=== PATIENT | male | born 1950 | race Caucasian/White ===

== ENCOUNTER → 2017-03-04 | Outpatient (CLI) | payer BC ==
[2017-03-04 13:56] LABS: BLOOD UREA NITROGEN 20 mg/dl (7-18); BUN/CREATININE RATIO 11.8 (10-20); CALCIUM 8.6 mg/dl (8.5-10.1); CARBON DIOXIDE 24 mmol/L (21-32); CHLORIDE 111 mmol/L (98-107); GLUCOSE 85 mg/dl (70-99); SODIUM 142 mmol/L (136-145)
[2017-03-04 14:00] LABS: CHOLESTEROL 153 mg/dl (0-200); CHOLESTEROL/HDL RATIO 4.1; HDL CHOLESTEROL 37 mg/dl; TRIGLYCERIDES 187 mg/dl (0-150); VERY LOW DENSITY LIPOPROT CALC 37 mg/dl
== END | disposition home or self-care (01) ==
LOC: C.LABSPEC 10:12
PROVIDERS: ATTEND Internal Medicine
DX: Z00.00 Encounter for general adult medical examination without abnormal findings (principal); E78.5 Hyperlipidemia, unspecified

== ENCOUNTER → 2017-10-14 | Outpatient (CLI) | payer BC ==
[2017-10-14 09:57] LABS: BASO % 0.3 %; BASO ABS # 0.02 K/uL (0-0.2); EOS % 1.8 %; EOS ABS # 0.11 K/uL (0-0.5); HEMATOCRIT 43.7 % (42-52); HEMOGLOBIN 14.7 g/dL (14.0-18.0); IG# 0.02 K/uL (0.00-0.02); LYMPH % 35.1 %; MEAN CELL VOLUME 87.9 fL (80-100); MEAN CORPUSCULAR HEMOGLOBIN 29.6 pg (25-34); MEAN CORPUSCULAR HGB CONC 33.6 g/dl (32-36); MEAN PLATELET VOLUME 9.6 fL (7.4-10.4); NEUT % 54.5 %; NEUT ABS # 3.42 K/uL (1.4-6.5); PLATELET COUNT 173 K/uL (130-400); RED CELL DISTRIBUTION WIDTH CV 14.3 % (11.5-14.5); RED CELL DISTRIBUTION WIDTH SD 45.8 fL (36.4-46.3); WHITE BLOOD COUNT 6.27 K/uL (4.8-10.8)
[2017-10-14 10:23] LABS: BLOOD UREA NITROGEN 21 mg/dl (7-18); CALCIUM 8.8 mg/dl (8.5-10.1); CARBON DIOXIDE 27 mmol/L (21-32); CREATININE 1.77 mg/dl (0.60-1.40); GLUCOSE 87 mg/dl (70-99); POTASSIUM 3.8 mmol/L (3.5-5.1); SODIUM 142 mmol/L (136-145)
== END | disposition home or self-care (01) ==
LOC: C.CPL 08:49
PROVIDERS: ATTEND Surgery
DX: K42.9 Umbilical hernia without obstruction or gangrene (principal)

== ENCOUNTER → 2018-02-03 | Outpatient (CLI) | payer BC ==
[~2018-02-03] MED LIST: ACET-1693 PO; CEPH500C2 PO; HYDR-5688 PO
== END | disposition home or self-care (01) ==
LOC: C.RDSM 10:54
PROVIDERS: ATTEND Podiatrist
DX: M79.671 Pain in right foot (principal); M79.672 Pain in left foot

== ENCOUNTER 2018-06-23 08:58 | Inpatient (IN) ==
[2018-06-23] MEDS ORDERED: fentaNYL citrate 100 MCG/2 ML VIAL IV STA (09:53)
[2018-06-23] MEDS ORDERED: SODIUM CHLORIDE 0.9% 1000ML 1,000 ML IV ONE (09:53)
[2018-06-23 10:05] LABS: Basophils # (auto) 0.04 K/uL (0-0.2); Basophils % (auto) 0.3 %; Eosinophils % (auto) 2.5 %; Hematocrit (blood only) 45.1 % (42-52); Hemoglobin 15.1 g/dL (14.0-18.0); Immature Granulocytes # (auto) 0.04 K/uL (0.00-0.02); Immature Granulocytes % (auto) 0.3 %; Lymphocytes # (auto) 2.48 K/uL (1.2-3.4); Lymphocytes % (auto) 20.5 %; Mean Corpuscular Hgb Conc 33.5 g/dL (32-36); Mean Corpuscular Volume 87.6 fL (80-100); Mean Platelet Volume 9.7 fL (7.4-10.4); Monocytes # (auto) 0.61 K/uL (0.11-0.59); Neutrophils # (auto) 8.62 K/uL (1.4-6.5); Neutrophils % (auto) 71.4 %; Platelet Count 146 K/uL (130-400); RDW Coefficient of Variation 13.9 % (11.5-14.5); RDW Standard Deviation 44.5 fL (36.4-46.3); Red Blood Count 5.15 M/uL (4.7-6.1); White Blood Count 12.09 K/uL (4.8-10.8)
[2018-06-23 10:11] LABS: Alanine Aminotransferase 23 U/L (12-78); Albumin Level 3.6 gm/dl (3.4-5.0); Aspartate Aminotransferase 9 U/L (15-37); BUN Creatinine Ratio 14.5 (10-20); Blood Urea Nitrogen 33 mg/dl (7-18); Calcium 9.5 mg/dl (8.5-10.1); Carbon Dioxide 23 mmol/L (21-32); Chloride 107 mmol/L (98-107); Creatinine Clr Calc Pharmacy 42.6 ml/min; Est GFR (African American) 33.3; Est GFR (Non-African American) 28.7; Glucose 121 mg/dl (70-99); Magnesium 2.2 mg/dl (1.8-2.4); Potassium 3.4 mmol/L (3.5-5.1); Sodium 141 mmol/L (136-145)
[2018-06-23 10:17] LABS: Albumin Globulin Ratio 0.9 (0.9-2); Alkaline Phosphatase 79 U/L (45-117); Bilirubin,Total 1.7 mg/dl (0.1-1); Globulin 4.1 gm/dl (2.5-4.0); NT Pro B Type Natriuretic Pept 144 pg/ml (0-900); Total Protein 7.7 gm/dl (6.4-8.2); Troponin I < 0.015 ng/ml (0-0.045)
--- NOTE | 2018-06-23 11:51 | XRay Report ---
XR chest 2V routine HISTORY: Short of breath, left chest pain COMPARISON: None. FINDINGS: No pneumothorax. There may be a trace left pleural effusion. Left basilar airspace opacitie s are noted. Slight elevation the left hemidiaphragm. No evidence for pulmonary edema. The right lung is clear. The heart is borderline enlarged. This may be accentuated by the low lung volumes. There i s a left infrahilar/subcarinal nodule measuring 4.9 x 3.6 cm. IMPRESSION: 1. A 4.9 x 3.6 cm left infrahilar/subcarinal nodule. This could be partially calcified given the dens ity. However, recommend dedicated chest CT with contrast for further evaluation. 2. Suspect a trace left pleural effusion with left basilar airspace opacities. This could be due to a telectasis or pneumonia. Electronically signed by: Hollis Christianson M.D. 06/23/2018 11:50 AM
[2018-06-23] MEDS ORDERED: AZITHROMYCIN 250 MG TAB PO ONE (11:54)
[2018-06-23] MEDS ORDERED: cefTRIAXone SODIUM 1,000 MG/50 ML BAG IV STA (11:54)
[2018-06-23] MEDS ORDERED: SODIUM CHLORIDE 0.9% 1000ML 1,000 ML IV SCH (12:15)
[2018-06-23] MEDS ORDERED: IOVERSOL 100ml IV PRN (12:54)
--- NOTE | 2018-06-23 13:00 | CT Scan Report ---
CT ANGIOGRAM OF THE CHEST CLINICAL HISTORY: Atypical chest pain, shortness of breath, abnormal chest x-ray with adenopathy. COMPARISON STUDY: Chest x-ray dated 06/23/2018 TECHNIQUE: Following the IV administration of 94 mL of Optiray-320, CT angiogram of the thorax was pe rformed from the thoracic inlet to the lung bases utilizing the pulmonary embolus protocol. Images ar e reviewed in the axial, sagittal, and coronal planes. IV contrast was administered without complicat ion. MIP imaging was performed. A dose lowering technique was utilized adhering to the principles of ALARA. CT DOSE: 765.23 mGy.cm FINDINGS: There are densely calcified mediastinal lymph nodes consistent with an old granulomatous etiology. There is mild dilatation of the ascending thoracic aorta which measures 41 mm. There are extensive bilateral pulmonary artery filling defects, indicative of acute bilateral pulmona ry embolism. There is equivocal minor right ventricular strain. There is a small left pleural effusion There is respiratory motion artifact. There are dependent atelectatic changes. There are calcified le ft lower lobe granulomas. Pleural-based opacities are likely atelectatic or small infarcts. IMPRESSION: 1. Acute bilateral pulmonary embolism. Electronically signed by: Osmani Lynch M.D. 06/23/2018 12:59 PM
[2018-06-23 13:26] LABS: INR 1.1 (0.9-1.1); Partial Thromboplastin Ratio 1.1; Partial Thromboplastin Time 29.7 Seconds (21.0-31.0); Prothrombin Time 11.3 Seconds (9.0-12.0)
--- NOTE | 2018-06-23 14:29 | Ultrasound Report ---
BILATERAL LOWER EXTREMITY VENOUS DOPPLER HISTORY: Acute shortness of breath with pulmonary emboli new Pe dx COMPARISON STUDY: CTA chest of same day FINDINGS: RIGHT: Common femoral, profunda femoris and superficial femoral veins appear normal and patent. Occlusive th rombus within the popliteal vein. Posterior tibial, anterior tibial and peroneal veins appear patent. Limited visualization of the calf vessels secondary to patient body habitus. LEFT: There is normal compressibility, flow, and augmentation within the left lower extremity deep venous s tructures. Limited visualization of the calf vessels secondary to patient body habitus. IMPRESSION: 1. Occlusive deep venous thrombosis of the right popliteal vein. 2. No sonographic evidence of left-sided deep venous thrombosis. Electronically signed by: Quinton Herrera M.D. 06/23/2018 2:28 PM
[2018-06-23] MEDS ORDERED: HEPARIN 25000 UNIT/500 ML D5W IV ONE (14:51)
[2018-06-23] MEDS ORDERED: HEPARIN SQ 5000 UNIT HEART ALERT CARP ONE (14:53)
[2018-06-23] MEDS: HEPARIN STANDARD DEXTROSE 25,000 UNITS/500 ML IV SCH (15:00)
--- NOTE | 2018-06-23 15:26 | History & Physical Report ---
Date of Service June 23, 2018 Assessment & Plan (1) Bilateral pulmonary embolism: This patient is a 67-year-old male with a history of HTN, idiopathic peripheral neuropathy, osteoarthritis of the ankle, chronic neck pain, and CKD stage III, who presents with worsening shortness of breath times 2 weeks along with the onset of left-sided chest pain in the lateral ribs for 2 days, along with chills but no documented fevers. He was found to have a left-sided pleural effusion and suspected pneumonia on chest x-ray. He was then sent for a CT angiogram of the chest which revealed extensive bilateral acute pulmonary emboli, along with left-sided pleural effusion and probable left lower lobe pulmonary infarct. Lower extremity venous Dopplers were positive for right popliteal DVT. He had a leukocytosis on admission but was afebrile. He was tachycardic in a sinus rhythm. He denies any recent travel or long car trips, he had an umbilical hernia repair 6 months ago, and he retired 6 months ago but has not been sedentary. He is up-to-date on colonoscopy in the last couple of months that was normal. He denies weight loss or feeling poorly otherwise prior to the last 2 weeks. He is hemodynamically stable and actually has elevated blood pressures. He is not hypoxic. Suspect possible DVT formation after his umbilical hernia repair in November, plus he then retired in December of this year and has been more sedentary than usual. He does not appear to have an underlying malignancy, however pulmonary notes that some of the appearance on his CT scan could be suspicious for mesothelioma , but could also be consistent with changes from pulmonary infarct. -Admit to telemetry unit -Start heparin drip for anticoagulation-discussed Coumadin versus NOAC with him for long-term anticoagulation and will need to rossi out the cost of the NOACs as part of his decision -Trend troponin given ST depression in lateral leads on ECG -Check echocardiogram for right-sided heart strain -We will need repeat CT of the chest in 6 months to ensure changes mentioned above are not chronic or worsening -Supplemental O2 as needed to keep pulse ox greater than 92% -Morphine 2 mg IV every 30 minutes as needed for left-sided chest pain which is pleuritic in nature -Appreciate pulmonology consultation (2) Left sided chest pain: Likely related to pleurisy from pleural effusion and pulmonary infarct. Does have some mild ST depression in lateral leads and ECG. Initial troponin is negative given that the pain is been going on constantly for 2 days, makes GA not likely at all. -Will trend troponin I more time -Check ECG in the morning IV morphine as needed for pain (3) Pneumonia: Possibly in the left lower lobe due to pulmonary infarct. With leukocytosis here and chills at home times 2 days with parapneumonic effusion. -Start Rocephin and azithromycin -Follow clinically -Blood cultures drawn (4) HTN (hypertension), benign: With significantly elevated blood pressures could be secondary to pain or anxiety -Continue metoprolol 25 mg p.o. twice daily -Holding triamterene/HCTZ given acute kidney injury -Treat pain with morphine (5) CKD (chronic kidney disease) stage 3, GFR 30-59 ml/min: Baseline creatinine around 1.7-1.8. Likely secondary to hypertensive nephropathy With creatinine elevated here above baseline as per below -Avoid nephrotoxins -Recommended he permanently discontinue meloxicam (6) Chronic neck pain: Tylenol or morphine as needed for pain-this is chronic (7) Shortness of breath: Secondary to pulmonary emboli and pleurisy -Pain control -Treating PE as above (8) Abnormal ECG: As per section on chest pain above -Repeat ECG in the morning (9) Acute DVT (deep venous thrombosis): Right popliteal DVT -Treating with anticoagulation as above (10) Osteoarthritis of ankle: Chronic, recommend stopping all NSAID use due to CKD-discussed with patient (11) Peripheral neuropathy, idiopathic: Chronic and stable -Continue gabapentin 100 mg p.o. nightly (12) JOSEPH (acute kidney injury): Creatinine elevated to 2.3 on admission from baseline of 1.7-1.8, with elevated BUN. Likely prerenal in nature due to decreased p.o. intake over the last 2 days with his illness -Continue IV fluid hydration with normal saline at 75 mL's per hour -Follow BMP in the morning (13) DVT prophylaxis: On heparin drip for acute DVT/PE as above Disposition-admit to telemetry unit, expect at least a 2 midnight stay to control symptoms, evaluate for right-sided heart strain, and establish anticoagulation History of Present Illness Chief Complaint: Chest pain, shortness of breath Primary Care Provider: Michel Treviño MD This patient is a 67-year-old male with a history of HTN, idiopathic peripheral neuropathy, osteoarthritis of the ankle, chronic neck pain, and CKD stage III, who presents to the ER with worsening shortness of breath times 2 weeks along with the onset of left-sided chest pain in the lateral ribs for 2 days. He reports chills at home but no documented fevers as they do not have a thermometer at home. He has had a dry cough. The pain was worsening and when he called his PCPs office, they recommended that he come to the ER for evaluation. He has not had much to eat or drink in the last 2 days because he was feeling poorly. He was found to have a left-sided pleural effusion and suspected pneumonia on chest x-ray. He was then sent for a CT angiogram of the chest which revealed extensive bilateral acute pulmonary emboli, along with left-sided pleural effusion and probable left lower lobe pulmonary infarct. Lower extremity venous Dopplers were positive for right popliteal DVT. He had a leukocytosis on admission but was afebrile. He was tachycardic in a sinus rhythm. He denies any recent travel or long car trips, he had an umbilical hernia repair 6 months ago, and he retired 6 months ago but has not been sedentary. He is up-to-date on colonoscopy in the last couple of months that was normal. He denies weight loss or feeling poorly otherwise prior to the last 2 weeks. He was hemodynamically stable and actually had elevated blood pressures. He was not hypoxic in the ER. He will be admitted for acute extensive bilateral pulmonary emboli. Allergies Allergy/AdvReac Type Severity Reaction Status Date / Time adhesive Allergy Unknown blisters Verified 06/23/18 10:20 No Known Drug Allergies Allergy Unknown nkda Verified 06/23/18 10:20 Home Medications Home Medications Medication Instructions Recorded Confirmed Type gabapentin 100 mg PO HS 06/23/18 06/23/18 History meloxicam 15 mg PO DAILY 06/23/18 06/23/18 History metoprolol tartrate 25 mg PO BID 06/23/18 06/23/18 History triamterene-hydrochlorothiazid 1 tab PO DAILY 06/23/18 06/23/18 History Past Med/Surg History Medical History Chronic neck pain Osteoarthritis of ankle Peripheral neuropathy, idiopathic CKD (chronic kidney disease) stage 3, GFR 30-59 ml/min HTN (hypertension), benign Surgical History History of umbilical hernia repair History of hernia surgery (Chronic) Family History Daughter DVT (deep venous thrombosis) Gynecologic malignancy Other No significant family history Social History Current Living Situation: Spouse Feels Safe at Home: Yes Safety Concerns: Feels Safe At This Time Smoking Status: Never smoker Hx Alcohol Use: Yes Alcohol type: beer Alcohol Intake Frequency: holidays/ special occasions only Hx Substance Use: No Beliefs That Will Affect Care: None Preferred Language: Persian Communication Ability: Effective Review of Systems All systems reviewed & are unremarkable except as noted in HPI & below Physical Exam 2 Vital Signs (Past 24 Hours): Last Vital Signs Temp 36.7 C 06/23/18 09:08 Pulse 89 06/23/18 13:54 Resp 18 06/23/18 13:54 BP 169/101 H 06/23/18 13:54 Pulse Ox 98 06/23/18 13:54 Constitutional: WD/WN, vitals as above Eyes: PERRL, conjunctivae normal, anicteric sclerae ENMT: external ear and nose normal, oropharynx normal Ears: no external ear abnormality, no EAC abnormality and no TM abnormality Nose: no external nose abnormality, no turbinate abnormality, no nasal mucous membrane abnormality , no nasal discharge and no sinus tenderness Mouth: no lip abnormality, no oropharynx abnormality and no oral mucosal abnormality Throat: uvula midline ; no posterior oropharynx abnormality Neck: trachea midline, no thyromegaly no tracheal deviation Thyroid: normal thyroid; no thyroid mass Respiratory: normal respiratory effort; no labored breathing Auscultation: + diminished lung sounds (At the left base); no crackles and no wheezes Cardiovascular: Rate/Rhythm: regular rhythm and + tachycardic Heart Sounds : normal S1 and normal S2; no murmur Vessels: dorsalis pedis pulses present and radial pulses present; no renal bruit Extremities: normal capillary refill; no calf tenderness, no edema and no varicosities Gastrointestinal (Abdomen): normal bowel sounds, soft, nontender, no hepatosplenomegaly Musculoskeletal: Extremities: extremities normal to inspection; no cyanosis and no clubbing Skin: no rashes, warm and dry Neurologic: moves all extremities and awake; no focal motor deficits Psychiatric: A+Ox3, euthymic affect Results & Data Laboratory Results 06/23/18 06/23/18 06/23/18 Range/Units 13:39 11:15 09:30 WBC (4.8-10.8) K/uL RBC (4.7-6.1) M/uL Hgb (14.0-18.0) g/dL Hct (42-52) % MCV (80-100) fL MCH (25-34) pg MCHC (32-36) g/dL RDW Std Deviation (36.4-46.3) fL RDW Coeff of Kang (11.5-14.5) % Plt Count (130-400) K/uL MPV (7.4-10.4) fL Immature Gran % (Auto) % Neut % (Auto) % Lymph % (Auto) % Gordon % (Auto) % Eos % (Auto) % Baso % (Auto) % Immature Gran # (Auto) (0.00-0.02) K/uL Neut # (Auto) (1.4-6.5) K/uL Lymph # (Auto) (1.2-3.4) K/uL Gordon # (Auto) (0.11-0.59) K/uL Eos # (Auto) (0-0.5) K/uL Baso # (Auto) (0-0.2) K/uL PT (9.0-12.0) Seconds INR (0.9-1.1) APTT (21.0-31.0) Seconds PTT Ratio Hexagonal Phase Confirm Pending Protein C Activity Pending Protein S Activity Pending Antithrombin III Activ Pending Factor V Leiden Mutat Pending Factor V Leiden Interp Pending Fact V Leiden Review By Pending Sodium (136-145) mmol/L Potassium (3.5-5.1) mmol/L Chloride (98-107) mmol/L Carbon Dioxide (21-32) mmol/L Anion Gap (3-11) BUN (7-18) mg/dl Creatinine (0.6-1.4) mg/dl Est Cr Clr Drug Dosing ml/min Est GFR ( Amer) Est GFR (Non-Af Amer) BUN/Creatinine Ratio (10-20) Glucose (70-99) mg/dl Calcium (8.5-10.1) mg/dl Magnesium (1.8-2.4) mg/dl Total Bilirubin (0.1-1) mg/dl AST (15-37) U/L ALT (12-78) U/L Alkaline Phosphatase (45-117) U/L Troponin I (0-0.045) ng/ml NT-Pro-B Natriuret Pep (0-900) pg/ml Total Protein (6.4-8.2) gm/dl Albumin (3.4-5.0) gm/dl Globulin (2.5-4.0) gm/dl Albumin/Globulin Ratio (0.9-2) Lipase (73-393) U/L Homocysteine Pending Beta-2-GPI IgG Ab Pending Beta-2-GPI IgA Ab Pending Beta-2-GPI IgM Ab Pending Anti-Cardiolipin IgG Ab Pending Anti-Cardiolipin IgA Ab Pending Anti-Cardiolipin IgM Ab Pending Influenza Type A Ag Neg for Influ A (Neg) Influenza Type B Ag Neg for Influ B (Neg) Prothrombin Gene Mutate Pending Prothromb Gene Comment Pending Prothromb Reviewed By Pending 06/23/18 06/23/18 06/23/18 Range/Units 09:30 09:30 09:30 WBC 12.09 H (4.8-10.8) K/uL RBC 5.15 (4.7-6.1) M/uL Hgb 15.1 (14.0-18.0) g/dL Hct 45.1 (42-52) % MCV 87.6 (80-100) fL MCH 29.3 (25-34) pg MCHC 33.5 (32-36) g/dL RDW Std Deviation 44.5 (36.4-46.3) fL RDW Coeff of Kang 13.9 (11.5-14.5) % Plt Count 146 (130-400) K/uL MPV 9.7 (7.4-10.4) fL Immature Gran % (Auto) 0.3 % Neut % (Auto) 71.4 % Lymph % (Auto) 20.5 % Gordon % (Auto) 5.0 % Eos % (Auto) 2.5 % Baso % (Auto) 0.3 % Immature Gran # (Auto) 0.04 H (0.00-0.02) K/uL Neut # (Auto) 8.62 H (1.4-6.5) K/uL Lymph # (Auto) 2.48 (1.2-3.4) K/uL Gordon # (Auto) 0.61 H (0.11-0.59) K/uL Eos # (Auto) 0.30 (0-0.5) K/uL Baso # (Auto) 0.04 (0-0.2) K/uL PT 11.3 (9.0-12.0) Seconds INR 1.1 (0.9-1.1) APTT 29.7 (21.0-31.0) Seconds PTT Ratio 1.1 Hexagonal Phase Confirm Protein C Activity Protein S Activity Antithrombin III Activ Factor V Leiden Mutat Factor V Leiden Interp Fact V Leiden Review By Sodium 141 (136-145) mmol/L Potassium 3.4 L (3.5-5.1) mmol/L Chloride 107 (98-107) mmol/L Carbon Dioxide 23 (21-32) mmol/L Anion Gap 10.0 (3-11) BUN 33 H (7-18) mg/dl Creatinine 2.30 H (0.6-1.4) mg/dl Est Cr Clr Drug Dosing 42.6 ml/min Est GFR ( Amer) 33.3 Est GFR (Non-Af Amer) 28.7 BUN/Creatinine Ratio 14.5 (10-20) Glucose 121 H (70-99) mg/dl Calcium 9.5 (8.5-10.1) mg/dl Magnesium 2.2 (1.8-2.4) mg/dl Total Bilirubin 1.7 H (0.1-1) mg/dl AST 9 L (15-37) U/L ALT 23 (12-78) U/L Alkaline Phosphatase 79 (45-117) U/L Troponin I < 0.015 (0-0.045) ng/ml NT-Pro-B Natriuret Pep 144 (0-900) pg/ml Total Protein 7.7 (6.4-8.2) gm/dl Albumin 3.6 (3.4-5.0) gm/dl Globulin 4.1 H (2.5-4.0) gm/dl Albumin/Globulin Ratio 0.9 (0.9-2) Lipase 126 (73-393) U/L Homocysteine Beta-2-GPI IgG Ab Beta-2-GPI IgA Ab Beta-2-GPI IgM Ab Anti-Cardiolipin IgG Ab Anti-Cardiolipin IgA Ab Anti-Cardiolipin IgM Ab Influenza Type A Ag (Neg) Influenza Type B Ag (Neg) Prothrombin Gene Mutate Prothromb Gene Comment Prothromb Reviewed By Diagnostic Findings CT angiogram chest personally reviewed by me and agree with the following report : FINDINGS: There are densely calcified mediastinal lymph nodes consistent with an old granulomatous etiology. There is mild dilatation of the ascending thoracic aorta which measures 41 mm. There are extensive bilateral pulmonary artery filling defects, indicative of acute bilateral pulmonary embolism. There is equivocal minor right ventricular strain. There is a small left pleural effusion There is respiratory motion artifact. There are dependent atelectatic changes. There are calcified left lower lobe granulomas. Pleural-based opacities are likely atelectatic or small infarcts. IMPRESSION: 1. Acute bilateral pulmonary embolism. Chest x-ray personally reviewed by me and agree with the following report: XR chest 2V routine HISTORY: Short of breath, left chest pain COMPARISON: None. FINDINGS: No pneumothorax. There may be a trace left pleural effusion. Left basilar airspace opacities are noted. Slight elevation the left hemidiaphragm. No evidence for pulmonary edema. The right lung is clear. The heart is borderline enlarged. This may be accentuated by the low lung volumes. There is a left infrahilar/subcarinal nodule measuring 4.9 x 3.6 cm. IMPRESSION: 1. A 4.9 x 3.6 cm left infrahilar/subcarinal nodule. This could be partially calcified given the density. However, recommend dedicated chest CT with contrast for further evaluation. 2. Suspect a trace left pleural effusion with left basilar airspace opacities. This could be due to atelectasis or pneumonia. Venous Doppler bilateral lower extremities: Right popliteal DVT present ECG Indication: chest pain Rate (beats per minute): 105 Rhythm: sinus tachycardia Findings: + ST depression (In the lateral leads, with voltage criteria for LVH present) Code Status & VTE Plan Code Status Full code VTE Prophylaxis Plan VTE Prophylaxis will be ordered: Yes _ (1) Acute DVT (deep venous thrombosis) DVT location: lower extremity Affected thrombotic vein of extremity: popliteal Laterality: right Qualified Code(s): I82.431 - Acute embolism and thrombosis of right popliteal vein (2) Pneumonia Pneumonia type: due to unspecified organism Laterality: left Lung location: lower lobe of lung Qualified Code(s): J18.1 - Lobar pneumonia, unspecified organism
[2018-06-23] MEDS ORDERED: ALUMINUM/MAGNESIUM SUSP 30 ML UDC PO PRN (16:48)
[2018-06-23] MEDS ORDERED: ONDANSETRON INJ 2 MG/ML 2 ML VIAL IV PRN (16:48)
[2018-06-23] MEDS ORDERED: POLYETHYLENE (MIRALAX) 17 GM PACK PO PRN (16:48)
[2018-06-23] MEDS ORDERED: MAGNESIUM HYDROXIDE SUSP 30 ML UDC PO PRN (16:48)
[2018-06-23] MEDS ORDERED: ACETAMINOPHEN 325 MG TAB PO PRN (16:48)
[2018-06-23] MEDS: SODIUM CHLORIDE 0.9% 1000ML 1,000 ML IV SCH (17:44)
[2018-06-23] MEDS: MoRPHine SULFATE 2 MG/ML CARP IV PRN (17:44)
--- NOTE | 2018-06-23 18:27 | Pulmonary Consultation ---
Date of Consultation June 23, 2018 Assessment & Plan (1) Bilateral pulmonary embolism: Impression: 1. Venous thromboembolic event, with PE bilaterally right greater than left. DVT with right popliteal vein thrombosis. The event likely related to recent surgical intervention and immobility for 4-6 weeks postop, per family. 2. No evidence of RV strain by CAT scan criteria, troponin is negative. 3. Pulmonary infarct involving the medial segment of the left lower lobe. Multiple areas of sub-pleuritic changes could be related to subsegmental infarct as well. 4. Small pleural effusion left-sided, inflammatory in nature. Plan: 1. Agree with heparin drip. 2. Based on the patient insurability, Coumadin versus NOAC can be started. 3. The patient will need a repeat CAT scan in 6-month to evaluate for the sub- pleuritic changes noted which should subside as they reflects pulmonary infarct most likely. 4. Pleuritic chest pain secondary to pulmonary infarct. The pain is migratory due to the pleural effusion changing position with body position as well. 5. The patient has hypercoagulable state workup done, still pending. 6. The patient denies any asbestos exposure during his career. 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 7. Discussed in details with the family and with the patient himself. All their questions been answered. 8. Obtain echocardiogram. Thank you, will follow. History of Present Illness Reason for Consultation: Pulmonary embolism Requesting Physician: Dr. Grossman Attending Physician: Zonia Grossman MD History of Present Illness Dear Dr. Grossman: Thank you for the kind referral of Mr. Bland to pulmonary service. Mr. Bland is a 67-year-old gentleman with a history of umbilical hernia status post surgical repair 4 months ago, presented to the hospital with increased shortness of breath for the past 2 weeks, chills and pleuritic chest pain on the left radiating to his left shoulder in the past 2 days, he did have occasional cough but dry without any sputum production, no hemoptysis reported no syncopal episodes and no chest pain substernally. Denies any epigastric pain no nausea or vomiting and no diarrhea no heartburn no abdominal pain and no change in bowel movements or urine habits. The patient in the ED underwent a workup which revealed no ST-T changes on the EKG, troponin was negative. CT Angio of the chest revealed bilateral PE with left lower lobe infiltrate. I was asked to evaluate the patient in regard of his current PE as well as persistent pleuritic chest pain. Ultrasound of the lower extremities revealed right popliteal DVT. The patient has a daughter who had a history of PE after she has been diagnosed with [employer] malignancy, she was taken hormonal therapy that resulted in her thromboembolic event. No other first degree relative with a history of PE. The patient himself did not have any history of thrombo-embolic events in the past. Review of system as above, no weight loss was reported and no weight gain. He is morbidly obese to begin with. 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 He denies any exposure to asbestos. Allergies Allergy/AdvReac Type Severity Reaction Status Date / Time adhesive Allergy Unknown blisters Verified 06/23/18 10:20 No Known Drug Allergies Allergy Unknown nkda Verified 06/23/18 10:20 Home Medications Home Medications Medication Instructions Recorded Confirmed Type gabapentin 100 mg PO HS 06/23/18 06/23/18 History meloxicam 15 mg PO DAILY 06/23/18 06/23/18 History metoprolol tartrate 25 mg PO BID 06/23/18 06/23/18 History triamterene-hydrochlorothiazid 1 tab PO DAILY 06/23/18 06/23/18 History Patient History Surgical History History of hernia surgery (Chronic) Family History Other No significant family history Social History Current Living Situation: Spouse Feels Safe at Home: Yes Safety Concerns: Feels Safe At This Time Smoking Status: Never smoker Hx Alcohol Use: Yes Alcohol type: beer Alcohol Intake Frequency: holidays/ special occasions only Hx Substance Use: No Beliefs That Will Affect Care: None Preferred Language: Polish Communication Ability: Effective Review of Systems 14 systems has been reviewed, they were all within normal range compared to previous. Physical Exam 2 Vital Signs (Past 24 Hours): Last Vital Signs Temp 36.7 C 06/23/18 17:35 Pulse 102 H 06/23/18 17:35 Resp 24 06/23/18 17:35 BP 186/99 H 06/23/18 17:35 Pulse Ox 97 12/26/18 17:35 Physical Exam: Vital signs are stable, S1-S2 regular rate and rhythm, blood pressure is slightly elevated, no JVP, lungs are clear, abdomen is benign, good pulses in the periphery, little edema in the periphery. Results & Data Laboratory Results Troponin is negative. The rest of his labs are acceptable. Diagnostic Findings CAT scan of the chest was reviewed personally which showed right greater than left PE, RV to LV ratio is less than 2.9, slight dilation in the root of the aorta. Multiple areas are sub-pleuritic presumably reflecting pulmonary infarct with small pleural effusion on the left.
[2018-06-23] MEDS ORDERED: PNEUMOCOCCAL POLYSACCHARIDES 25 MCG/0.5 ML VIAL/SYR IM ONE (18:45)
[2018-06-23] MEDS ORDERED: PNEUMOCOCCAL ADMINISTRATION CHARGE ONE (18:45)
[2018-06-23] MEDS: METOPROLOL TARTRATE 25 MG TAB PO SCH (20:41)
[2018-06-23] MEDS: GABAPENTIN 100 MG CAP PO SCH (20:41)
[2018-06-23] MEDS ORDERED: POTASSIUM CHLORIDE 20 MEQ TABCR PO STA (20:53)
[2018-06-23 21:57] LABS: Partial Thromboplastin Time 51.6 Seconds (21.0-31.0)
[2018-06-24] MEDS: SODIUM CHLORIDE 0.9% 1000ML 1,000 ML IV SCH (05:47)
[2018-06-24] MEDS: HEPARIN STANDARD DEXTROSE 25,000 UNITS/500 ML IV SCH (05:47)
[2018-06-24 07:26] LABS: Basophils # (auto) 0.03 K/uL (0-0.2); Basophils % (auto) 0.3 %; Eosinophils # (auto) 0.37 K/uL (0-0.5); Eosinophils % (auto) 3.1 %; Hematocrit (blood only) 42.4 % (42-52); Immature Granulocytes # (auto) 0.04 K/uL (0.00-0.02); Immature Granulocytes % (auto) 0.3 %; Lymphocytes # (auto) 2.19 K/uL (1.2-3.4); Lymphocytes % (auto) 18.4 %; Mean Corpuscular Volume 88.1 fL (80-100); Mean Platelet Volume 9.6 fL (7.4-10.4); Monocytes # (auto) 0.72 K/uL (0.11-0.59); Neutrophils # (auto) 8.57 K/uL (1.4-6.5); Neutrophils % (auto) 71.9 %; Platelet Count 140 K/uL (130-400); RDW Standard Deviation 45.9 fL (36.4-46.3); Red Blood Count 4.81 M/uL (4.7-6.1); White Blood Count 11.92 K/uL (4.8-10.8)
[2018-06-24 07:49] LABS: Partial Thromboplastin Time 51.3 Seconds (21.0-31.0)
[2018-06-24 07:54] LABS: BUN Creatinine Ratio 12.9 (10-20); Calcium 8.6 mg/dl (8.5-10.1); Est GFR (African American) 42.5; Est GFR (Non-African American) 36.7; Potassium 3.6 mmol/L (3.5-5.1)
[2018-06-24] MEDS: METOPROLOL TARTRATE 25 MG TAB PO SCH ×2 (09:20→20:19)
[2018-06-24] MEDS: MoRPHine SULFATE 2 MG/ML CARP IV PRN (13:31)
[2018-06-24] MEDS: cefTRIAXone SODIUM 1,000 MG/50 ML BAG IV SCH (13:32)
[2018-06-24] MEDS: AZITHROMYCIN 250 MG in DEXTROSE 5% 250 ML IV SCH (14:36)
--- NOTE | 2018-06-24 14:48 | Pulmonology Progress Note ---
Date of Service June 24, 2018 Assessment & Plan (1) Bilateral pulmonary embolism: Impression: 1. Venous thromboembolic event, with PE bilaterally right greater than left. DVT with right popliteal vein thrombosis. Risk factor is immobility postop. 2. No evidence of RV strain by CAT scan criteria, troponin is negative. Awaiting echo. 3. Pulmonary infarct involving the medial segment of the left lower lobe. Multiple areas of sub-pleuritic changes could be related to subsegmental infarct as well. 4. Small pleural effusion left-sided, inflammatory in nature. Plan: 1. Continue therapeutic heparin drip. 2. Coumadin versus NOAC can be started. Pending insurance approval. 3. Repeat chest CT in 6 months after completion of treatment. 4. Pleuritic chest pain secondary to pulmonary infarct. The pain is migratory due to the pleural effusion changing position with body position as well. 5. The patient has hypercoagulable state workup done, still pending. 6. Ambulate the patient. 7. Discussed in details with the family and with the patient himself. All their questions been answered. 8. Echocardiogram is pending. 9. If the patient elected to go on Coumadin, overlap Coumadin with heparin with both therapeutic for at least 24 hours, this does not apply for NOAC where the patient can be started on the loading dose of the anticoagulant and heparin can be stopped immediately, the patient can be discharged. Thank you, will follow as needed. Subjective The patient is feeling better, chest pain is better, no shortness of breath, ambulatory to the bathroom. Is still using 2 L of oxygen via nasal cannula, no new symptoms. Denies any melena or hematochezia. Physical Exam 2 Vital Signs (Past 24 Hours): Last Vital Signs Temp 36.7 C 06/24/18 12:12 Pulse 77 06/24/18 12:12 Resp 18 06/24/18 12:12 BP 146/78 H 06/24/18 12:12 Pulse Ox 93 06/24/18 12:12 Physical Exam: Vital signs remained stable, S1-S2 regular rate and rhythm, lungs are clear, abdomen is benign, no edema. Results & Data Laboratory Results PTT reviewed, platelets and hematocrit also were reviewed. Diagnostic Findings No new imaging.
--- NOTE | 2018-06-24 19:56 | Hospitalist Progress Note ---
Date of Service June 24, 2018 Assessment & Plan (1) Bilateral pulmonary embolism: This patient is a 67-year-old male with a history of HTN, idiopathic peripheral neuropathy, osteoarthritis of the ankle, chronic neck pain, and CKD stage III, who presents with worsening shortness of breath times 2 weeks along with the onset of left-sided chest pain in the lateral ribs for 2 days, along with chills but no documented fevers. He was found to have a left-sided pleural effusion and suspected pneumonia on chest x-ray. He was then sent for a CT angiogram of the chest which revealed extensive bilateral acute pulmonary emboli, along with left-sided pleural effusion and probable left lower lobe pulmonary infarct. Lower extremity venous Dopplers were positive for right popliteal DVT. He had a leukocytosis on admission but was afebrile. He was tachycardic in a sinus rhythm. He denies any recent travel or long car trips, he had an umbilical hernia repair 6 months ago, and he retired 6 months ago but has not been sedentary. He is up-to-date on colonoscopy in the last couple of months that was normal. He denies weight loss or feeling poorly otherwise prior to the last 2 weeks. He is hemodynamically stable and actually has elevated blood pressures. He is not hypoxic. Suspect possible DVT formation after his umbilical hernia repair in November, plus he then retired in December of this year and has been more sedentary than usual. He does not appear to have an underlying malignancy, however pulmonary notes that some of the appearance on his CT scan could be suspicious for mesothelioma , but could also be consistent with changes from pulmonary infarct. -Continue telemetry monitoring -Convert heparin drip to Coumadin with Lovenox bridge at 1 mg/KG every 12 hours as per patient's choice of anticoagulation -Follow PT/INR in the morning-he will need to have this followed by his PCP as an outpatient - troponin negative x2 and was trended given ST depression in lateral leads on ECG which are likely secondary to heart strain -Echocardiogram performed but not read at this time-we will follow-up on results tomorrow -He will need repeat CT of the chest in 6 months to ensure changes mentioned above are not chronic or worsening -Is now weaned off supplemental O2 -Pleuritic chest pain improving-can take Tylenol as needed for pain -Appreciate pulmonology consultation (2) Left sided chest pain: Likely related to pleurisy from pleural effusion and pulmonary infarct. Does have some mild ST depression in lateral leads and ECG. Troponin negative x2 and given that the pain is been going on constantly for 2 days, makes [place] not likely at all. Morphine and Tylenol as needed for pain as above (3) Pneumonia: Possibly in the left lower lobe due to pulmonary infarct. With leukocytosis here and chills at home times 2 days with parapneumonic effusion. -Continue Rocephin and azithromycin-day #2 and can convert to p.o. Levaquin upon discharge to complete a 7-day course -Much improved overall, afebrile -Blood cultures-no growth to date (4) HTN (hypertension), benign: With significantly elevated blood pressures could be secondary to pain or anxiety, improved today -Continue metoprolol 25 mg p.o. twice daily -Holding triamterene/HCTZ given acute kidney injury and could likely restart tomorrow -Treat pain (5) CKD (chronic kidney disease) stage 3, GFR 30-59 ml/min: Baseline creatinine around 1.7-1.8. Likely secondary to hypertensive nephropathy With JOSEPH here as below -Avoid nephrotoxins -Recommended he permanently discontinue meloxicam (6) Chronic neck pain: Tylenol or morphine as needed for pain-this is chronic (7) Shortness of breath: Secondary to pulmonary emboli and pleurisy -Pain control -Treating PE as above (8) Abnormal ECG: As per section on chest pain above (9) Acute DVT (deep venous thrombosis): Right popliteal DVT -Treating with anticoagulation as above (10) Osteoarthritis of ankle: Chronic, recommend stopping all NSAID use due to CKD-discussed with patient (11) Peripheral neuropathy, idiopathic: Chronic and stable -Continue gabapentin 100 mg p.o. nightly (12) JOSEPH (acute kidney injury): Creatinine elevated to 2.3 on admission from baseline of 1.7-1.8, with elevated BUN. Likely prerenal in nature due to decreased p.o. intake over the last 2 days with his illness Creatinine now improved back to baseline at 1.88 with IV fluid hydration -Can discontinue IV fluids at this time -Follow BMP in the morning (13) DVT prophylaxis: Heparin drip converting to Lovenox bridge with Coumadin as above Disposition-continue telemetry monitoring, if doing well tomorrow, could possibly discharge to home Subjective Patient feeling much improved today. He is still having occasional left-sided chest pain but overall feeling better. He is not short of breath and he is weaned off oxygen. He denies cough or sputum production. He denies nausea or abdominal pain. No lightheadedness. Telemetry with sinus arrhythmia with rates in the 80s-100s In discussion with him and his , he has decided he would like to go on warfarin as opposed to a NOAC Review of Systems All systems reviewed & are unremarkable except as noted in HPI & below Physical Exam 2 Vital Signs (Past 24 Hours): Last Vital Signs Temp 36.9 C 06/24/18 16:00 Pulse 86 06/24/18 16:00 Resp 20 06/24/18 16:00 BP 179/92 H 06/24/18 16:00 Pulse Ox 94 06/24/18 16:00 Constitutional: WD/WN, vitals as above Eyes: PERRL, conjunctivae normal, anicteric sclerae ENMT: Mouth: no lip abnormality Neck: trachea midline, no thyromegaly no tracheal deviation Thyroid: normal thyroid; no thyroid mass Respiratory: normal respiratory effort; no labored breathing Auscultation: + diminished lung sounds (At the left base); no crackles and no wheezes Cardiovascular: Rate/Rhythm: regular rate and regular rhythm Heart Sounds: normal S1 and normal S2; no murmur Vessels: dorsalis pedis pulses present and radial pulses present; no renal bruit Extremities: normal capillary refill; no calf tenderness, no edema and no varicosities Gastrointestinal (Abdomen): normal bowel sounds, soft, nontender, no hepatosplenomegaly Musculoskeletal: Extremities: extremities normal to inspection; no cyanosis and no clubbing Skin: no rashes, warm and dry Neurologic: moves all extremities and awake; no focal motor deficits Psychiatric: A+Ox3, euthymic affect Results & Data Laboratory Results 06/24/18 06/24/18 06/24/18 Range/Units 07:07 07:07 07:07 WBC 11.92 H (4.8-10.8) K/uL RBC 4.81 (4.7-6.1) M/uL Hgb 14.0 (14.0-18.0) g/dL Hct 42.4 (42-52) % MCV 88.1 (80-100) fL MCH 29.1 (25-34) pg MCHC 33.0 (32-36) g/dL RDW Std Deviation 45.9 (36.4-46.3) fL RDW Coeff of Kang 14.0 (11.5-14.5) % Plt Count 140 (130-400) K/uL MPV 9.6 (7.4-10.4) fL Immature Gran % (Auto) 0.3 % Neut % (Auto) 71.9 % Lymph % (Auto) 18.4 % Fallon % (Auto) 6.0 % Eos % (Auto) 3.1 % Baso % (Auto) 0.3 % Immature Gran # (Auto) 0.04 H (0.00-0.02) K/uL Neut # (Auto) 8.57 H (1.4-6.5) K/uL Lymph # (Auto) 2.19 (1.2-3.4) K/uL Fallon # (Auto) 0.72 H (0.11-0.59) K/uL Eos # (Auto) 0.37 (0-0.5) K/uL Baso # (Auto) 0.03 (0-0.2) K/uL APTT 51.3 H* (21.0-31.0) Seconds PTT Ratio 2.0 Sodium 139 (136-145) mmol/L Potassium 3.6 (3.5-5.1) mmol/L Chloride 106 (98-107) mmol/L Carbon Dioxide 24 (21-32) mmol/L Anion Gap 9.0 (3-11) BUN 24 H (7-18) mg/dl Creatinine 1.88 H D (0.6-1.4) mg/dl Est Cr Clr Drug Dosing 52.0 ml/min Est GFR ( Amer) 42.5 Est GFR (Non-Af Amer) 36.7 BUN/Creatinine Ratio 12.9 (10-20) Glucose 111 H (70-99) mg/dl Calcium 8.6 (8.5-10.1) mg/dl Magnesium 2.0 (1.8-2.4) mg/dl Troponin I (0-0.045) ng/ml 06/23/18 06/23/18 Range/Units 21:08 21:08 WBC (4.8-10.8) K/uL RBC (4.7-6.1) M/uL Hgb (14.0-18.0) g/dL Hct (42-52) % MCV (80-100) fL MCH (25-34) pg MCHC (32-36) g/dL RDW Std Deviation (36.4-46.3) fL RDW Coeff of Kang (11.5-14.5) % Plt Count (130-400) K/uL MPV (7.4-10.4) fL Immature Gran % (Auto) % Neut % (Auto) % Lymph % (Auto) % Fallon % (Auto) % Eos % (Auto) % Baso % (Auto) % Immature Gran # (Auto) (0.00-0.02) K/uL Neut # (Auto) (1.4-6.5) K/uL Lymph # (Auto) (1.2-3.4) K/uL Fallon # (Auto) (0.11-0.59) K/uL Eos # (Auto) (0-0.5) K/uL Baso # (Auto) (0-0.2) K/uL APTT 51.6 H* (21.0-31.0) Seconds PTT Ratio 2.0 Sodium (136-145) mmol/L Potassium (3.5-5.1) mmol/L Chloride (98-107) mmol/L Carbon Dioxide (21-32) mmol/L Anion Gap (3-11) BUN (7-18) mg/dl Creatinine (0.6-1.4) mg/dl Est Cr Clr Drug Dosing ml/min Est GFR ( Amer) Est GFR (Non-Af Amer) BUN/Creatinine Ratio (10-20) Glucose (70-99) mg/dl Calcium (8.5-10.1) mg/dl Magnesium (1.8-2.4) mg/dl Troponin I < 0.015 (0-0.045) ng/ml _ (1) Pneumonia Pneumonia type: due to unspecified organism Aspiration pneumonia type: Laterality: left Lung location: lower lobe of lung Qualified Code(s): J18.1 - Lobar pneumonia, unspecified organism (2) Acute DVT (deep venous thrombosis) DVT location: lower extremity Affected thrombotic vein of extremity: popliteal Laterality: right Qualified Code(s): I82.431 - Acute embolism and thrombosis of right popliteal vein
[2018-06-24] MEDS ORDERED: WARFARIN SOD 5 MG TAB PO ONE (20:00)
[2018-06-24] MEDS: GABAPENTIN 100 MG CAP PO SCH (20:19)
[2018-06-24] MEDS: ENOXAPARIN INJ 120 MG/0.8 ML SYR SQ SCH (20:29)
[2018-06-25 05:45] LABS: Basophils # (auto) 0.02 K/uL (0-0.2); Basophils % (auto) 0.2 %; Eosinophils # (auto) 0.53 K/uL (0-0.5); Eosinophils % (auto) 5.1 %; Hemoglobin 13.5 g/dL (14.0-18.0); Immature Granulocytes # (auto) 0.02 K/uL (0.00-0.02); Immature Granulocytes % (auto) 0.2 %; Lymphocytes % (auto) 20.1 %; Mean Corpuscular Hgb Conc 33.8 g/dL (32-36); Mean Corpuscular Volume 87.7 fL (80-100); Mean Platelet Volume 9.5 fL (7.4-10.4); Monocytes # (auto) 0.76 K/uL (0.11-0.59); Monocytes % (auto) 7.3 %; Neutrophils % (auto) 67.1 %; Platelet Count 153 K/uL (130-400); RDW Coefficient of Variation 13.8 % (11.5-14.5); RDW Standard Deviation 44.5 fL (36.4-46.3); Red Blood Count 4.56 M/uL (4.7-6.1); White Blood Count 10.43 K/uL (4.8-10.8)
[2018-06-25 05:54] LABS: INR 1.1 (0.9-1.1); Prothrombin Time 11.5 Seconds (9.0-12.0)
[2018-06-25 06:15] LABS: BUN Creatinine Ratio 13.5 (10-20); Calcium 8.7 mg/dl (8.5-10.1); Creatinine Clr Calc Pharmacy 49.6 ml/min; Est GFR (African American) 40.2; Est GFR (Non-African American) 34.6; Potassium 3.6 mmol/L (3.5-5.1)
[2018-06-25] MEDS: ENOXAPARIN INJ 120 MG/0.8 ML SYR SQ SCH (08:31)
[2018-06-25] MEDS ORDERED: METOPROLOL TARTRATE 50 MG TAB PO SCH (09:00)
[2018-06-25] MEDS ORDERED: AMLODIPINE BESYLATE 5 MG TAB PO SCH (09:00)
[2018-06-25] MEDS: cefTRIAXone SODIUM 1,000 MG/50 ML BAG IV SCH (12:15)
[2018-06-25] MEDS: AZITHROMYCIN 250 MG in DEXTROSE 5% 250 ML IV SCH (13:37)
--- NOTE | 2018-06-25 14:53 | Discharge Summary ---
Date of Service June 25, 2018 Admission HPI Per Admitting Provider This patient is a 67-year-old male with a history of HTN, idiopathic peripheral neuropathy, osteoarthritis of the ankle, chronic neck pain, and CKD stage III, who presents to the ER with worsening shortness of breath times 2 weeks along with the onset of left-sided chest pain in the lateral ribs for 2 days. He reports chills at home but no documented fevers as they do not have a thermometer at home. He has had a dry cough. The pain was worsening and when he called his PCPs office, they recommended that he come to the ER for evaluation. He has not had much to eat or drink in the last 2 days because he was feeling poorly. He was found to have a left-sided pleural effusion and suspected pneumonia on chest x-ray. He was then sent for a CT angiogram of the chest which revealed extensive bilateral acute pulmonary emboli, along with left-sided pleural effusion and probable left lower lobe pulmonary infarct. Lower extremity venous Dopplers were positive for right popliteal DVT. He had a leukocytosis on admission but was afebrile. He was tachycardic in a sinus rhythm. He denies any recent travel or long car trips, he had an umbilical hernia repair 6 months ago, and he retired 6 months ago but has not been sedentary. He is up-to-date on colonoscopy in the last couple of months that was normal. He denies weight loss or feeling poorly otherwise prior to the last 2 weeks. He was hemodynamically stable and actually had elevated blood pressures. He was not hypoxic in the ER. He will be admitted for acute extensive bilateral pulmonary emboli. Principal Diagnosis Acute pulmonary embolism, Acute lower extremity DVT Discharge Exam Constitutional WD/WN, vitals as above Eyes PERRL, conjunctivae normal, anicteric sclerae ENMT external ear and nose normal, oropharynx normal Ears: no external ear abnormality, no EAC abnormality and no TM abnormality Nose: no external nose abnormality, no turbinate abnormality, no nasal mucous membrane abnormality, no nasal discharge and no sinus tenderness Mouth: no lip abnormality, no oropharynx abnormality and no oral mucosal abnormality Throat: uvula midline; no posterior oropharynx abnormality Neck trachea midline, no thyromegaly no tracheal deviation Thyroid: normal thyroid; no thyroid mass Respiratory normal respiratory effort; no labored breathing Auscultation: + diminished lung sounds (At the left base); no crackles and no wheezes Cardiovascular Rate/Rhythm: regular rate, regular rhythm and + tachycardic Heart Sounds: normal S1 and normal S2; no murmur Vessels: dorsalis pedis pulses present and radial pulses present; no renal bruit Extremities: normal capillary refill; no calf tenderness, no edema and no varicosities Gastrointestinal (Abdomen) normal bowel sounds, soft, nontender, no hepatosplenomegaly Musculoskeletal Extremities: extremities normal to inspection; no cyanosis and no clubbing Skin no rashes, warm and dry Neurologic moves all extremities and awake; no focal motor deficits Psychiatric A+Ox3, euthymic affect Discharge Data Allergies Allergy/AdvReac Type Severity Reaction Status Date / Time adhesive Allergy Unknown blisters Verified 06/23/18 10:20 No Known Drug Allergies Allergy Unknown nkda Verified 06/23/18 10:20 Consultations Pulmonology Ordered Studies 06/23/18 12:14 CT angio chest PE protocol Stat 06/23/18 13:25 US venous doppler [facility] Stat Hospital Course (1) Bilateral pulmonary embolism: This patient is a 67-year-old male with a history of HTN, idiopathic peripheral neuropathy, osteoarthritis of the ankle, chronic neck pain, and CKD stage III, who presents with worsening shortness of breath times 2 weeks along with the onset of left-sided chest pain in the lateral ribs for 2 days, along with chills but no documented fevers. He was found to have a left-sided pleural effusion and suspected pneumonia on chest x-ray. He was then sent for a CT angiogram of the chest which revealed extensive bilateral acute pulmonary emboli, along with left-sided pleural effusion and probable left lower lobe pulmonary infarct. Lower extremity venous Dopplers were positive for right popliteal DVT. He had a leukocytosis on admission but was afebrile. He was tachycardic in a sinus rhythm. He denies any recent travel or long car trips, he had an umbilical hernia repair 6 months ago, and he retired 6 months ago but has not been sedentary. He is up-to-date on colonoscopy in the last couple of months that was normal. He denies weight loss or feeling poorly otherwise prior to the last 2 weeks. He is hemodynamically stable and actually has elevated blood pressures. He is not hypoxic. Suspect possible DVT formation after his umbilical hernia repair in November, plus he then retired in December of this year and has been more sedentary than usual. He does not appear to have an underlying malignancy, however pulmonary notes that some of the appearance on his CT scan could be suspicious for mesothelioma , but could also be consistent with changes from pulmonary infarct. -no arrhythmias noted on telemetry monitoring -Converted heparin drip to Coumadin with Lovenox bridge at 1 mg/KG every 12 hours as per patient's choice of anticoagulation -Follow PT/INR on Thursday--> he will need to have this followed by his PCP as an outpatient who can direct when to STOP LOVENOX -suggest overlap of 48 hours with therapeutic INR prior to discontinuing the Lovenox -would recommend at least 6 months of anticoagulation therapy - troponin negative x2 and was trended given ST depression in lateral leads on ECG which are likely secondary to heart strain -Echocardiogram with normal LVEF, no diastolic dysfunction or right heart strain , but with severe LVH -He will need repeat CT of the chest in 6 months to ensure changes mentioned above are not chronic or worsening -Is now weaned off supplemental O2 and was not hypoxic with ambulation prior to discharge -Pleuritic chest pain improving-can take Tylenol as needed for pain -Appreciate pulmonology consultation (2) Left sided chest pain: Likely related to pleurisy from pleural effusion and pulmonary infarct. Does have some mild ST depression in lateral leads and ECG. Troponin negative x2 and given that the pain is been going on constantly for 2 days, makes [place] not likely at all. Morphine and Tylenol were given as needed for pain as above (3) Pneumonia: Possibly in the left lower lobe due to pulmonary infarct. With leukocytosis here and chills at home times 2 days with parapneumonic effusion. Resolving, clinically improved Received Rocephin and azithromycin x 3 days and can convert to p.o. Levaquin upon discharge to complete a 7-day course -Much improved overall, afebrile -Blood cultures-no growth to date (4) HTN (hypertension), benign: With significantly elevated blood pressures could be secondary to pain or anxiety,remained somewhat elevated on day of discharge -increased metoprolol to 50 mg p.o. twice daily -added amlodipine 2.5mg po qday and titrate up as needed as outpt -discontinued triamterene/HCTZ given creatitnine being at 1.9 (worse than baseline) -Treat pain (5) CKD (chronic kidney disease) stage 3, GFR 30-59 ml/min: Baseline creatinine around 1.7-1.8. Likely secondary to hypertensive nephropathy With JOSEPH here as below -Avoid nephrotoxins -Recommended he permanently discontinue meloxicam (6) Chronic neck pain: Tylenol as needed for pain-this is chronic (7) Shortness of breath: Secondary to pulmonary emboli and pleurisy -Pain control -Treating PE as above (8) Abnormal ECG: As per section on chest pain above (9) Acute DVT (deep venous thrombosis): Right popliteal DVT -Treating with anticoagulation as above (10) Osteoarthritis of ankle: Chronic, recommend stopping all NSAID use due to CKD-discussed with patient (11) Peripheral neuropathy, idiopathic: Chronic and stable -Continue gabapentin 100 mg p.o. nightly (12) JOSEPH (acute kidney injury): Creatinine elevated to 2.3 on admission from baseline of 1.7-1.8, with elevated BUN. Likely prerenal in nature due to decreased p.o. intake over the last 2 days with his illness Creatinine now improved back to baseline at 1.88 with IV fluid hydration (13) DVT prophylaxis: Heparin drip converting to Lovenox bridge with Coumadin as above Disposition-stable for discharge to home Total Time Total Time Spent Total Time Spent (In Minutes): >30 min Total Time Includes: Examination of the Patient, Discharge Planning and Medication Reconciliation Discharge Plan Discharge Items Patient Disposition: Home - Self-Care Reason For Visit: ACUTE PULMONARY EMBOLISM Discharge Diagnosis: Acute pulmonary embolism, Deep venous thrombosis Condition: Fair Discharge Goals: Decrease discomfort, Diagnostic testing, Improve disease control, Learn about illness and Therapeutic intervention Activity: Resume your previous activity Lifting: Gradually increase as tolerated Bathing: No limitations Exercise/Sports: Gradually increase as tolerated Driving/Machine Use: No limitations Non-emergency contact: Primary Care Provider Call non-emergency contact if: you have any medication questions, your symptoms worsen, your pain is not controlled, your pain is worsening, your pain is unusual for you, your pain is concerning for you and your temperature is above 100.5 Follow-up/Referrals: Michel Treviño MD [Primary Care Provider] - 07/01/18 11:15 am (Please, follow up at Dr. Jordon Davis's office on ThursdayJune 28 (before 11 :00 am) to have your PT and INR drawn. They are expecting you. Please, follow up with Dr. Jordon Davis on July 01 at 11:15 am. *If you need to change this appointment, call the office at [phone].) Diet: Heart Healthy Other Ambulatory Orders: Prothrombin Time INR (Routine) Timeframe: 3 Days Location: Determined by Patient Ordered By: Zonia Henderson Provider Instructions: You were admitted with blood clots in the lungs and also were found to have a blood clot in your right leg. This was likely caused after having surgery this summer and by not walking around as much as you used to since you retired. This needs to be treated with blood thinners for at least 6 months.You will use injections of enoxaparin (Lovenox) twice a day until your PT/INR (coumadin level ) gets between 2.0-3.0. Please also take the coumadin tablet once daily. Have your blood work checked for your PT/INR on Thursday morning and then Dr. Jordon Davis will tell you when to stop the injections. Your blood pressure was also uncontrolled and your metoprolol was increased to metoprolol 50mg twice daily. A new blood pressure was also added called amlodipine (Norvasc) 2.5mg once daily. You should STOP taking your triamterene/HCTZ for your blood pressure due to your low kidney function. Please follow up with Dr. Jordon Davis within 1 week as scheduled for you and he can adjust your medications as needed for your blood pressure. You will also finish out a course of antibiotics for your pneumonia for 5 more days. You will need a follow up CT scan of the chest in 6 months to ensure all of the abnormalities seen here have cleared up. Prescriptions: New enoxaparin [Lovenox] 120 mg/0.8 mL Syringe 120 mg subcut Q12H Qty: 8 RF: 0 warfarin [Coumadin] 5 mg Tablet 5 mg PO DAILY@1600 Qty: 30 RF: 0 amlodipine [Norvasc] 5 mg Tablet 2.5 mg PO QAM Qty: 30 RF: 0 acetaminophen [Mapap (acetaminophen)] 325 mg Tablet 650 mg PO Q4H PRN (Reason: pain) Qty: 30 RF: 0 levofloxacin 750 mg tablet 750 mg PO DAILY 5 Days Qty: 5 RF: 0 Continue gabapentin 100 mg Capsule 100 mg PO HS RF: 0 Changed metoprolol tartrate 25 mg Tablet 50 mg PO BID Qty: 0 RF: 0 Discontinued meloxicam 15 mg Tablet 15 mg PO DAILY RF: 0 triamterene-hydrochlorothiazid 37.5-25 mg Tablet 1 tab PO DAILY RF: 0 Visit Report Forms: My [facility] Portal Stand-Alone Forms: My [facility] [employer]/Other Patient Handouts: Coumadin Discharge Orders: Discharge Order (Routine); Ordered 06/25/18 Ordered By: Zonia Grossman Admission Data Admit Date/Time: 06/23/18 15:21 Attending Provider: Zonia Grossman Admit Provider: Zonia Grossman Primary Care Provider: Michel Treviño Other Providers: Zonia Grossman ; Nadege Rivera Service: Telemetry Other Interventions: Discharge Summary Assessment (RN) Last Done: 06/25/18 15:15 Pending Studies at Discharge: Yes Studies:: Final Blood cultures-no growth to date DC Date/Time DO NOT enter until pt leaves facility: 06/25/18 17:10
[2018-06-25 15:57] VITALS: BP 165/89; PULSE 96; TEMP 97.7; O2SAT 92
[2018-06-25] MEDS ORDERED: WARFARIN SOD 5 MG TAB PO SCH (16:00)
--- NOTE | 2018-06-26 12:31 | Emergency Department Note ---
Entered by Rene Bryan acting as a scribe for Brandee Frederick DO History of Present Illness General Chief complaint: Respiratory Problems Stated complaint: SOB, TROUBLE BREATHING., SIDE PAIN Time Seen by Provider: 06/23/18 09:40 Source: patient History of Present Illness Onset (ago): week(s) 1 Location: chest (shortness of breath) Pain Consistency: + intermittent Maximum Pain Intensity: 3 Exacerbated By: + movement (walking up the stairs) Associated symptoms: + denies other symptoms (dehydration, swelling in legs, abnormal urination), + cough (dry cough), + fever/chills, + nausea/vomiting ( positive nausea, negative vomiting) and + other (rib pain starting 2 days ago, stuffy nose, sore throat) The patient is a 67 year old M who presents to the Emergency Room with complaints of intermittent shortness of breath starting 1 week ago. He adds that his shortness of breath is exacerbated when he walks up the stairs. He states that he also has rib pain which started two days ago. He adds that he took Tylenol for the pain which did not help. He notes that he has not had an appetite recently which is unusual for him. He states that he has a dry cough, stuffy nose, sore throat, chills and nausea. He denies vomiting, dehydration, swelling in legs, and abnormal urination. He denies having a history of pneumonia, heart problems, and blood clots. He adds that he got his flu shot this year. He notes that he had surgery for a hernia in November. No recent travel. Unknown sick contacts. No prior hx of tobacco abuse. Home Medications Home Medications Medication Instructions Recorded Confirmed Type gabapentin 100 mg PO HS 06/23/18 06/23/18 History acetaminophen [Mapap 650 mg PO Q4H PRN #30 tab 06/25/18 Rx (acetaminophen)] amlodipine [Norvasc] 2.5 mg PO QAM #30 tab 06/25/18 Rx enoxaparin [Lovenox] 120 mg SUBCUT Q12H #8 ml 06/25/18 Rx levofloxacin 750 mg PO DAILY 5 Days #5 tab 06/25/18 Rx metoprolol tartrate 50 mg PO BID #0 tab 06/25/18 06/23/18 Rx warfarin [Coumadin] 5 mg PO DAILY@1600 #30 tab 06/25/18 Rx Allergies Allergy/AdvReac Type Severity Reaction Status Date / Time adhesive Allergy Unknown blisters Verified 06/23/18 10:20 No Known Drug Allergies Allergy Unknown nkda Verified 06/23/18 10:20 Past Med/Surg History Medical History Acute DVT (deep venous thrombosis) Abnormal ECG Chronic neck pain Osteoarthritis of ankle Peripheral neuropathy, idiopathic CKD (chronic kidney disease) stage 3, GFR 30-59 ml/min HTN (hypertension), benign Surgical History History of umbilical hernia repair History of hernia surgery (Chronic) Family History Daughter DVT (deep venous thrombosis) Gynecologic malignancy Other No significant family history Social History Current Living Situation: Spouse Feels Safe at Home: Yes Safety Concerns: Feels Safe At This Time Smoking Status: Never smoker Hx Alcohol Use: Yes Alcohol type: beer Alcohol Intake Frequency: holidays/ special occasions only Hx Substance Use: No Beliefs That Will Affect Care: None Preferred Language: [place] Review of Systems See HPI for pertinent positives & negatives. and A total of 10 systems reviewed and were otherwise negative Physical Exam Vital Signs Vital Signs - 24 hr 06/25/18 15:15 06/25/18 15:44 Temperature 36.5 C Temperature Source Oral Pulse Rate 88 Pulse Rate [Apical] 80 Pulse Rate [Right Finger] 96 H Respiratory Rate 20 Blood Pressure [Left Arm] 165/89 H Blood Pressure Mean [Left Arm] 114 Blood Pressure Position [Left Arm] Sitting Pulse Oximetry 92 Oxygen Delivery Method Room Air GENERAL: alert, uncomfortable appearing, well nourished, no distress, non-toxic EYE EXAM: normal conjunctiva, PERRL and EOM's grossly intact OROPHARYNX: no exudate, no erythema, lips, buccal mucosa, and tongue normal and mucous membranes are moist NECK: supple, no nuchal rigidity, no adenopathy, non-tender LUNGS: Clear to auscultation. Normal chest wall mechanics. No/W/R/R. Reproducible left lateral chest wall tenderness. no crepitus. HEART: no murmurs, S1 normal and S2 normal ABDOMEN: abdomen soft, non-tender, normo-active bowel sounds, no masses, no rebound or guarding. BACK: Back is symmetrical on inspection and there is no deformity, no midline tenderness, no CVA tenderness. SKIN: no rashes and no bruising UPPER EXTREMITIES: upper extremities are grossly normal. FROM, nml pulses b/l. LOWER EXTREMITIES: No pitting edema. FROM, nml pulses b/l. No calf tenderness. NEURO EXAM: Normal sensorium, cranial nerves II-XII grossly intact, normal speech, no gross weakness of arms, no gross weakness of legs. Course 0943: Past medical records reviewed. The patient was evaluated in room C3, and a complete history and physical examination were performed. 1156: I re-evaluated the patient and updated her on her test results. 1320: I re-evaluated the patient. 1329: I reviewed the patient's case with Dr. Zonia Grossman. She will evaluate the patient for further management. Consultations Consultation #1: I reviewed the patient's case with Dr. Zonia Grossman. She will evaluate the patient for further management. Time: 13:29 Administered Medications Discontinued Medications Amlodipine Besylate (Norvasc) 2.5 mg PO QAM PRAMOD Stop: 07/25/18 08:59 Last Admin: 06/25/18 11:21 Dose: 2.5 mg Azithromycin (Zithromax) 500 mg PO NOW ONE Stop: 06/23/18 11:55 Last Admin: 06/23/18 12:19 Dose: 500 mg Enoxaparin Sodium (Lovenox) 120 mg 1 mg/kg (120 mg) SQ Q12H PRAMOD Stop: 07/24/18 20:29 Last Admin: 06/25/18 08:31 Dose: 120 mg Admin: 06/24/18 20:29 Dose: 120 mg Fentanyl Citrate (Fentanyl Citrate) 100 mcg IV NOW STA Stop: 06/23/18 09:54 Last Admin: 06/23/18 10:08 Dose: 100 mcg Gabapentin (Neurontin) 100 mg PO HS PRAMOD Stop: 07/23/18 20:59 Last Admin: 06/24/18 20:19 Dose: 100 mg Admin: 06/23/18 20:41 Dose: 100 mg Heparin Sodium (Beef Lung) (Heparin Sod 5000u Heart Alert) Confirm Administered Dose 5,000 units .ROUTE .STK-MED ONE Stop: 06/23/18 14:54 Last Admin: 06/23/18 15:00 Dose: 5,000 units Heparin Sodium/Dextrose () 1 ea N/A NOW STA; Protocol Stop: 06/23/18 13:26 Last Admin: 06/23/18 15:43 Dose: Not Given Heparin Sodium/Dextrose (Heparin Sodium/Dextrose) Confirm Administered Dose 25, 000 units IV .STK-MED ONE Stop: 06/23/18 14:52 Last Admin: 06/23/18 15:01 Dose: 34 units Sodium Chloride (Nss 1000ml) 1,000 mls @ 999 mls/hr IV .Q1H1M ONE Stop: 06/23/18 10:53 Last Infusion: 06/23/18 11:09 Dose: 0 mls/hr Admin: 06/23/18 10:08 Dose: 999 mls/hr Ceftriaxone Sodium (Rocephin) 1,000 mg in 50 mls @ 100 mls/hr IV NOW STA Stop: 06/23/18 12:23 Last Infusion: 06/23/18 12:49 Dose: 0 mls/hr Admin: 06/23/18 12:19 Dose: 100 mls/hr Sodium Chloride (Nss 1000ml) 1,000 mls @ 250 mls/hr IV .Q4H PRAMOD Stop: 07/23/18 12:14 Last Infusion: 06/23/18 19:02 Dose: 0 mls/hr Admin: 06/23/18 12:19 Dose: 250 mls/hr Heparin Sodium/Dextrose (Heparin Sodium/Dextrose) 25,000 units in 500 mls @ 34 mls/hr IV .[id number] PRAMOD; Protocol Stop: 07/23/18 14:56 Last Titration: 06/24/18 19:20 Dose: 0 units/hr, 0 mls/hr Titration: 06/24/18 07:11 Dose: 1,700 units/hr, 34 mls/hr Admin: 06/24/18 05:47 Dose: 1,700 units/hr, 34 mls/hr Titration: 06/24/18 05:43 Dose: 1,700 units/hr, 34 mls/hr Titration: 06/23/18 22:30 Dose: 1,700 units/hr, 34 mls/hr Titration: 06/23/18 19:03 Dose: 1,700 units/hr, 34 mls/hr Admin: 06/23/18 15:00 Dose: 1,700 units/hr, 34 mls/hr Sodium Chloride (Nss 1000ml) 1,000 mls @ 75 mls/hr IV .[id number] [facility] Stop: 07/23/18 17:29 Last Infusion: 06/24/18 19:22 Dose: 0 mls/hr Admin: 06/24/18 05:47 Dose: 75 mls/hr Infusion: 06/24/18 05:47 Dose: 75 mls/hr Admin: 06/23/18 17:44 Dose: 75 mls/hr Azithromycin 250 mg/ Dextrose 252.5 mls @ 125 mls/hr IV Q24H [facility]; Protocol Stop: 07/01/18 11:59 Last Infusion: 06/25/18 15:39 Dose: 0 mls/hr Admin: 06/25/18 13:37 Dose: 125 mls/hr Infusion: 06/24/18 16:40 Dose: 0 mls/hr Admin: 06/24/18 14:36 Dose: 125 mls/hr Ceftriaxone Sodium (Rocephin) 1,000 mg in 50 mls @ 100 mls/hr IV Q24H [facility]; Protocol Stop: 06/30/18 11:59 Last Infusion: 06/25/18 12:45 Dose: 0 mls/hr Admin: 06/25/18 12:15 Dose: 100 mls/hr Infusion: 06/24/18 14:05 Dose: 0 mls/hr Admin: 06/24/18 13:32 Dose: 100 mls/hr Ioversol (Optiray 320 100ml) 94 ml IV ONCE PRN PRN Reason: Interaction Checking Stop: 06/27/18 12:53 Last Admin: 06/23/18 12:54 Dose: 94 ml Metoprolol Tartrate (Lopressor) 25 mg PO BID [facility] Stop: 07/23/18 20:59 Last Admin: 06/24/18 20:19 Dose: 25 mg Admin: 06/24/18 09:20 Dose: 25 mg Admin: 06/23/18 20:41 Dose: 25 mg Metoprolol Tartrate (Lopressor) 50 mg PO BID [facility] Stop: 07/25/18 08:59 Last Admin: 06/25/18 11:23 Dose: 50 mg Morphine Sulfate (Morphine Sulfate) 2 mg IV Q30M PRN PRN Reason: Chest Pain Stop: 07/07/18 16:47 Last Admin: 06/24/18 13:31 Dose: 2 mg Admin: 06/23/18 17:44 Dose: 2 mg Pneumococcal Polyvalent Vaccine (Pneumovax-23) 25 mcg IM .ONCE ONE Stop: 06/23/18 18:46 Last Admin: 06/24/18 20:15 Dose: 25 mcg Potassium Chloride (Klor-Con M20) 20 meq PO NOW STA Stop: 06/23/18 20:54 Last Admin: 06/23/18 22:34 Dose: 20 meq Warfarin Sodium (Coumadin) 5 mg PO DAILY@1600 PRAMOD Stop: 07/25/18 15:59 Last Admin: 06/25/18 15:29 Dose: 5 mg Warfarin Sodium (Coumadin) 5 mg PO NOW ONE Stop: 06/24/18 20:01 Last Admin: 06/24/18 20:30 Dose: 5 mg Medical Decision Making Differential Diagnosis Differential diagnoses includes but is not limited to pneumonia, bronchitis, COPD/Asthma exacerbation, pneumothorax, pulmonary embolism, congestive heart failure, acute coronary syndrome Medical Records Attestation: I reviewed the patient's medical records. Home Medications Current Medication List: was personally reviewed by me Laboratory Data Attestation: I reviewed the patient's lab results. Result diagrams: 06/25/18 05:24 06/25/18 05:24 Lab Results 06/23/18 06/23/18 06/23/18 Range/Units 09:30 09:30 09:30 WBC 12.09 H (4.8-10.8) K/uL RBC 5.15 (4.7-6.1) M/uL Hgb 15.1 (14.0-18.0) g/dL Hct 45.1 (42-52) % MCV 87.6 (80-100) fL MCH 29.3 (25-34) pg MCHC 33.5 (32-36) g/dL RDW Std Deviation 44.5 (36.4-46.3) fL RDW Coeff of Kang 13.9 (11.5-14.5) % Plt Count 146 (130-400) K/uL MPV 9.7 (7.4-10.4) fL Immature Gran % (Auto) 0.3 % Neut % (Auto) 71.4 % Lymph % (Auto) 20.5 % [place] % (Auto) 5.0 % Eos % (Auto) 2.5 % Baso % (Auto) 0.3 % Immature Gran # (Auto) 0.04 H (0.00-0.02) K/uL Neut # (Auto) 8.62 H (1.4-6.5) K/uL Lymph # (Auto) 2.48 (1.2-3.4) K/uL [place] # (Auto) 0.61 H (0.11-0.59) K/uL Eos # (Auto) 0.30 (0-0.5) K/uL Baso # (Auto) 0.04 (0-0.2) K/uL PT 11.3 (9.0-12.0) Seconds INR 1.1 (0.9-1.1) APTT 29.7 (21.0-31.0) Seconds PTT Ratio 1.1 Sodium 141 (136-145) mmol/L Potassium 3.4 L (3.5-5.1) mmol/L Chloride 107 (98-107) mmol/L Carbon Dioxide 23 (21-32) mmol/L Anion Gap 10.0 (3-11) BUN 33 H (7-18) mg/dl Creatinine 2.30 H (0.6-1.4) mg/dl Est Cr Clr Drug Dosing 42.6 ml/min Est GFR ( Amer) 33.3 Est GFR (Non-Af Amer) 28.7 BUN/Creatinine Ratio 14.5 (10-20) Glucose 121 H (70-99) mg/dl Calcium 9.5 (8.5-10.1) mg/dl Magnesium 2.2 (1.8-2.4) mg/dl Total Bilirubin 1.7 H (0.1-1) mg/dl AST 9 L (15-37) U/L ALT 23 (12-78) U/L Alkaline Phosphatase 79 (45-117) U/L Troponin I < 0.015 (0-0.045) ng/ml NT-Pro-B Natriuret Pep 144 (0-900) pg/ml Total Protein 7.7 (6.4-8.2) gm/dl Albumin 3.6 (3.4-5.0) gm/dl Globulin 4.1 H (2.5-4.0) gm/dl Albumin/Globulin Ratio 0.9 (0.9-2) Lipase 126 (73-393) U/L Homocysteine (<11.4) UMOL/L Influenza Type A Ag (Neg) Influenza Type B Ag (Neg) 06/23/18 06/23/18 06/23/18 Range/Units 09:30 11:15 21:08 WBC (4.8-10.8) K/uL RBC (4.7-6.1) M/uL Hgb (14.0-18.0) g/dL Hct (42-52) % MCV (80-100) fL MCH (25-34) pg MCHC (32-36) g/dL RDW Std Deviation (36.4-46.3) fL RDW Coeff of Kang (11.5-14.5) % Plt Count (130-400) K/uL MPV (7.4-10.4) fL Immature Gran % (Auto) % Neut % (Auto) % Lymph % (Auto) % [place] % (Auto) % Eos % (Auto) % Baso % (Auto) % Immature Gran # (Auto) (0.00-0.02) K/uL Neut # (Auto) (1.4-6.5) K/uL Lymph # (Auto) (1.2-3.4) K/uL [place] # (Auto) (0.11-0.59) K/uL Eos # (Auto) (0-0.5) K/uL Baso # (Auto) (0-0.2) K/uL PT (9.0-12.0) Seconds INR (0.9-1.1) APTT 51.6 H* (21.0-31.0) Seconds PTT Ratio 2.0 Sodium (136-145) mmol/L Potassium (3.5-5.1) mmol/L Chloride (98-107) mmol/L Carbon Dioxide (21-32) mmol/L Anion Gap (3-11) BUN (7-18) mg/dl Creatinine (0.6-1.4) mg/dl Est Cr Clr Drug Dosing ml/min Est GFR ( Amer) Est GFR (Non-Af Amer) BUN/Creatinine Ratio (10-20) Glucose (70-99) mg/dl Calcium (8.5-10.1) mg/dl Magnesium (1.8-2.4) mg/dl Total Bilirubin (0.1-1) mg/dl AST (15-37) U/L ALT (12-78) U/L Alkaline Phosphatase (45-117) U/L Troponin I (0-0.045) ng/ml NT-Pro-B Natriuret Pep (0-900) pg/ml Total Protein (6.4-8.2) gm/dl Albumin (3.4-5.0) gm/dl Globulin (2.5-4.0) gm/dl Albumin/Globulin Ratio (0.9-2) Lipase (73-393) U/L Homocysteine 13.0 H (<11.4) UMOL/L Influenza Type A Ag Neg for Influ A (Neg) Influenza Type B Ag Neg for Influ B (Neg) 06/23/18 06/24/18 06/24/18 Range/Units 21:08 07:07 07:07 WBC 11.92 H (4.8-10.8) K/uL RBC 4.81 (4.7-6.1) M/uL Hgb 14.0 (14.0-18.0) g/dL Hct 42.4 (42-52) % MCV 88.1 (80-100) fL MCH 29.1 (25-34) pg MCHC 33.0 (32-36) g/dL RDW Std Deviation 45.9 (36.4-46.3) fL RDW Coeff of Kang 14.0 (11.5-14.5) % Plt Count 140 (130-400) K/uL MPV 9.6 (7.4-10.4) fL Immature Gran % (Auto) 0.3 % Neut % (Auto) 71.9 % Lymph % (Auto) 18.4 % [place] % (Auto) 6.0 % Eos % (Auto) 3.1 % Baso % (Auto) 0.3 % Immature Gran # (Auto) 0.04 H (0.00-0.02) K/uL Neut # (Auto) 8.57 H (1.4-6.5) K/uL Lymph # (Auto) 2.19 (1.2-3.4) K/uL [place] # (Auto) 0.72 H (0.11-0.59) K/uL Eos # (Auto) 0.37 (0-0.5) K/uL Baso # (Auto) 0.03 (0-0.2) K/uL PT (9.0-12.0) Seconds INR (0.9-1.1) APTT (21.0-31.0) Seconds PTT Ratio Sodium 139 (136-145) mmol/L Potassium 3.6 (3.5-5.1) mmol/L Chloride 106 (98-107) mmol/L Carbon Dioxide 24 (21-32) mmol/L Anion Gap 9.0 (3-11) BUN 24 H (7-18) mg/dl Creatinine 1.88 H D (0.6-1.4) mg/dl Est Cr Clr Drug Dosing 52.0 ml/min Est GFR ( Amer) 42.5 Est GFR (Non-Af Amer) 36.7 BUN/Creatinine Ratio 12.9 (10-20) Glucose 111 H (70-99) mg/dl Calcium 8.6 (8.5-10.1) mg/dl Magnesium 2.0 (1.8-2.4) mg/dl Total Bilirubin (0.1-1) mg/dl AST (15-37) U/L ALT (12-78) U/L Alkaline Phosphatase (45-117) U/L Troponin I < 0.015 (0-0.045) ng/ml NT-Pro-B Natriuret Pep (0-900) pg/ml Total Protein (6.4-8.2) gm/dl Albumin (3.4-5.0) gm/dl Globulin (2.5-4.0) gm/dl Albumin/Globulin Ratio (0.9-2) Lipase (73-393) U/L Homocysteine (<11.4) UMOL/L Influenza Type A Ag (Neg) Influenza Type B Ag (Neg) 06/24/18 06/25/18 06/25/18 Range/Units 07:07 05:24 05:24 WBC 10.43 (4.8-10.8) K/uL RBC 4.56 L (4.7-6.1) M/uL Hgb 13.5 L (14.0-18.0) g/dL Hct 40.0 L (42-52) % MCV 87.7 (80-100) fL MCH 29.6 (25-34) pg MCHC 33.8 (32-36) g/dL RDW Std Deviation 44.5 (36.4-46.3) fL RDW Coeff of Kang 13.8 (11.5-14.5) % Plt Count 153 (130-400) K/uL MPV 9.5 (7.4-10.4) fL Immature Gran % (Auto) 0.2 % Neut % (Auto) 67.1 % Lymph % (Auto) 20.1 % [place] % (Auto) 7.3 % Eos % (Auto) 5.1 % Baso % (Auto) 0.2 % Immature Gran # (Auto) 0.02 (0.00-0.02) K/uL Neut # (Auto) 7.00 H (1.4-6.5) K/uL Lymph # (Auto) 2.10 (1.2-3.4) K/uL [place] # (Auto) 0.76 H (0.11-0.59) K/uL Eos # (Auto) 0.53 H (0-0.5) K/uL Baso # (Auto) 0.02 (0-0.2) K/uL PT 11.5 (9.0-12.0) Seconds INR 1.1 (0.9-1.1) APTT 51.3 H* (21.0-31.0) Seconds PTT Ratio 2.0 Sodium (136-145) mmol/L Potassium (3.5-5.1) mmol/L Chloride (98-107) mmol/L Carbon Dioxide (21-32) mmol/L Anion Gap (3-11) BUN (7-18) mg/dl Creatinine (0.6-1.4) mg/dl Est Cr Clr Drug Dosing ml/min Est GFR ( Amer) Est GFR (Non-Af Amer) BUN/Creatinine Ratio (10-20) Glucose (70-99) mg/dl Calcium (8.5-10.1) mg/dl Magnesium (1.8-2.4) mg/dl Total Bilirubin (0.1-1) mg/dl AST (15-37) U/L ALT (12-78) U/L Alkaline Phosphatase (45-117) U/L Troponin I (0-0.045) ng/ml NT-Pro-B Natriuret Pep (0-900) pg/ml Total Protein (6.4-8.2) gm/dl Albumin (3.4-5.0) gm/dl Globulin (2.5-4.0) gm/dl Albumin/Globulin Ratio (0.9-2) Lipase (73-393) U/L Homocysteine (<11.4) UMOL/L Influenza Type A Ag (Neg) Influenza Type B Ag (Neg) 06/25/18 Range/Units 05:24 WBC (4.8-10.8) K/uL RBC (4.7-6.1) M/uL Hgb (14.0-18.0) g/dL Hct (42-52) % MCV (80-100) fL MCH (25-34) pg MCHC (32-36) g/dL RDW Std Deviation (36.4-46.3) fL RDW Coeff of Kang (11.5-14.5) % Plt Count (130-400) K/uL MPV (7.4-10.4) fL Immature Gran % (Auto) % Neut % (Auto) % Lymph % (Auto) % [place] % (Auto) % Eos % (Auto) % Baso % (Auto) % Immature Gran # (Auto) (0.00-0.02) K/uL Neut # (Auto) (1.4-6.5) K/uL Lymph # (Auto) (1.2-3.4) K/uL [place] # (Auto) (0.11-0.59) K/uL Eos # (Auto) (0-0.5) K/uL Baso # (Auto) (0-0.2) K/uL PT (9.0-12.0) Seconds INR (0.9-1.1) APTT (21.0-31.0) Seconds PTT Ratio Sodium 137 (136-145) mmol/L Potassium 3.6 (3.5-5.1) mmol/L Chloride 106 (98-107) mmol/L Carbon Dioxide 24 (21-32) mmol/L Anion Gap 7.0 (3-11) BUN 27 H (7-18) mg/dl Creatinine 1.97 H (0.6-1.4) mg/dl Est Cr Clr Drug Dosing 49.6 ml/min Est GFR ( Amer) 40.2 Est GFR (Non-Af Amer) 34.6 BUN/Creatinine Ratio 13.5 (10-20) Glucose 102 H (70-99) mg/dl Calcium 8.7 (8.5-10.1) mg/dl Magnesium (1.8-2.4) mg/dl Total Bilirubin (0.1-1) mg/dl AST (15-37) U/L ALT (12-78) U/L Alkaline Phosphatase (45-117) U/L Troponin I (0-0.045) ng/ml NT-Pro-B Natriuret Pep (0-900) pg/ml Total Protein (6.4-8.2) gm/dl Albumin (3.4-5.0) gm/dl Globulin (2.5-4.0) gm/dl Albumin/Globulin Ratio (0.9-2) Lipase (73-393) U/L Homocysteine (<11.4) UMOL/L Influenza Type A Ag (Neg) Influenza Type B Ag (Neg) Imaging Data Radiologist's Impression: Radiology results as stated below per my review and the radiologist's interpretation: XR chest 2V routine HISTORY: Short of breath, left chest pain COMPARISON: None. FINDINGS: No pneumothorax. There may be a trace left pleural effusion. Left basilar airspace opacities are noted. Slight elevation the left hemidiaphragm. No evidence for pulmonary edema. The right lung is clear. The heart is borderline enlarged. This may be accentuated by the low lung volumes. There is a left infrahilar/subcarinal nodule measuring 4.9 x 3.6 cm. IMPRESSION: 1. A 4.9 x 3.6 cm left infrahilar/subcarinal nodule. This could be partially calcified given the density. However, recommend dedicated chest CT with contrast for further evaluation. 2. Suspect a trace left pleural effusion with left basilar airspace opacities. This could be due to atelectasis or pneumonia. Electronically signed by: Hollis Christianson M.D. 06/23/2018 11:[address] ANGIOGRAM OF THE CHEST CLINICAL HISTORY: Atypical chest pain, shortness of breath, abnormal chest x- ray with adenopathy. COMPARISON STUDY: Chest x-ray dated 06/23/2018 TECHNIQUE: Following the IV administration of 94 mL of Optiray-320, CT angiogram of the thorax was performed from the thoracic inlet to the lung bases utilizing the pulmonary embolus protocol. Images are reviewed in the axial, sagittal, and coronal planes. IV contrast was administered without complication. MIP imaging was performed. A dose lowering technique was utilized adhering to the principles of ALARA. CT DOSE: 765.23 mGy.cm FINDINGS: There are densely calcified mediastinal lymph nodes consistent with an old granulomatous etiology. There is mild dilatation of the ascending thoracic aorta which measures 41 mm. There are extensive bilateral pulmonary artery filling defects, indicative of acute bilateral pulmonary embolism. There is equivocal minor right ventricular strain. There is a small left pleural effusion There is respiratory motion artifact. There are dependent atelectatic changes. There are calcified left lower lobe granulomas. Pleural-based opacities are likely atelectatic or small infarcts. IMPRESSION: 1. Acute bilateral pulmonary embolism. Electronically signed by: Osmani Lynch M.D. 06/23/2018 12:59 PM BILATERAL LOWER EXTREMITY VENOUS DOPPLER HISTORY: Acute shortness of breath with pulmonary emboli new Pe dx COMPARISON STUDY: CTA chest of same day FINDINGS: RIGHT: Common femoral, profunda femoris and superficial femoral veins appear normal and patent. Occlusive thrombus within the popliteal vein. Posterior tibial, anterior tibial and peroneal veins appear patent. Limited visualization of the calf vessels secondary to patient body habitus. LEFT: There is normal compressibility, flow, and augmentation within the left lower extremity deep venous structures. Limited visualization of the calf vessels secondary to patient body habitus. IMPRESSION: 1. Occlusive deep venous thrombosis of the right popliteal vein. 2. No sonographic evidence of left-sided deep venous thrombosis. Electronically signed by: Quinton Herrera M.D. 06/23/2018 2:28 PM ECG Data Attestation: I personally reviewed and interpreted this ECG as follows: Indication: SOB/dyspnea Rate (beats per minute): 105 Rhythm: sinus tachycardia Findings: + ST depression (ST depression in lead 2, V3 through V6) and + left axis deviation Comparison ECG Date: from (10/14/17) Change: the following changes noted (The current findings are new compared to prior) Blood Pressure Blood Pressure Findings: Elevated blood pressure Blood Pressure Disposition: further management by hospitalist MDM Narrative Initial concern for evolving pneumonia given HPI and possible CXR findings. Acute on chronic kidney disease noted and thought initially from dehydration. Pt covered with antibiotics for CAP. Pt continued to report left chest pain and SOB, and cxr suggested enlarged lymph node so CT was pursued. This revealed b/l acute PE. No hx of DVT/PE in pt of family he is aware of. After discussed with hospitalist, hypercoagulable panel ordered prior to initiation of heparin drip. Pt had one episode of sharp pain and hypoxia which quickly recovered with additional oxygen. Pt subjectively felt improved with oxygen. Pt and family aware of all results and were in agreement with plan. Dopplers ordered of LE as a precaution. Troponin negative despite mildly abnormal EKG. No gross evidence of right heart strain. Impression & Plan Bilateral pulmonary embolism, Shortness of breath, Left sided chest pain, Abnormal ECG, JOSEPH (acute kidney injury) Critical Care Time I have personally spent 45 minutes of critical care time in the direct management of this patient. This includes bedside care, interpretation of diagnostic studies, and testing, discussion with consultants, patient, and family members, and other required patient management activities. This 45 minutes is in excess of all separately billable procedures. Critical Care Time: Yes Total Critical Care Time: 45 Discharge Plan Visit Data *Final* Discharge Date/Time: 06/23/18 16:45 Chief Complaint: Respiratory Problems Stated Complaint: SOB, TROUBLE BREATHING., SIDE PAIN ED Provider: Brandee Frederick Discharge Problem: Bilateral pulmonary embolism, Shortness of breath, Left sided chest pain, Abnormal ECG, JOSEPH (acute kidney injury) Patient Disposition: Admitted As Inpatient Condition: Fair Discharge Instructions Interventions: ED Discharge Assessment Last Done: 06/23/18 16:45 The scribe's documentation has been prepared under my direction and personally reviewed by me in its entirety. I confirm that the note above accurately reflects all work, treatment, procedures, and medical decision making performed by me.
[2018-06-27 18:43] LABS: Anti Cardiolipin Ab IgG <14 GPL (< = 14); Anti Cardiolipin Ab IgM 14 MPL (< = 12); Anti-Thrombin III Activity 86 % activity (80-120); B2 Glycoprotein IgA <9 SAU (<=20); B2 Glycoprotein IgG <9 SGU (<=20); B2 Glycoprotein IgM <9 SMU (<=20); Lupus Anticoagulant Weak Positive (Negative); Protein S Functional(Activity) 98 % (70-150)
== END 2018-06-25 17:10 | disposition home or self-care (01) | DRG 175 ==
LOC: ED 08:58 → 2S 15:21